=== PATIENT | female | born 1955 | race Caucasian/White ===

== ENCOUNTER 2017-09-02 11:12 | Outpatient (CLI) | payer MEDICARE | END 2017-09-02 11:13 | disposition home or self-care (01) | LOC: BICMAMMO 11:12 | PROVIDERS: ATTEND Family Medicine | DX: Z12.31 Encounter for screening mammogram for malignant neoplasm of breast (principal) | CPT/HCPCS: 77063; 77067 ==

== ENCOUNTER 2018-03-02 13:19 | Outpatient (CLI) | payer MEDICARE | END 2018-03-02 13:20 | disposition home or self-care (01) | LOC: BICULT 13:19 | PROVIDERS: ATTEND Family Medicine | DX: R10.2 Pelvic and perineal pain (principal) | CPT/HCPCS: 76856 ==

== ENCOUNTER 2019-12-13 14:19 | Outpatient (CLI) | payer MEDICARE ==
--- NOTE | 2019-12-13 14:52 | ULT ---
ULTRASOUND RETROPERITONEUM COMPLETE: (RENAL) DATE: 12/13/2019 HISTORY: 64-year-old female with chronic kidney disease stage III , N18.3 FINDINGS: The right kidney measures 10 x 4.5 x 4.5 cm. The left kidney measures 10 x 1.5 x 4.5 cm. Both kidneys have normal parenchymal echogenicity. There is no hydronephrosis. No moderate sized or large renal cystic or solid renal lesion is identified. Cursory images of the urinary bladder demonstrate no gross abnormality. IMPRESSION: Normal
== END 2019-12-13 14:20 | disposition home or self-care (01) ==
LOC: SCSULT 14:19
PROVIDERS: ATTEND Internal Medicine Nephrology
DX: N18.3 Chronic kidney disease, stage 3 (moderate) (principal)
CPT/HCPCS: 76770

== ENCOUNTER 2020-11-06 10:06 | Outpatient (CLI) | payer MEDICARE | END 2020-11-06 10:07 | disposition home or self-care (01) | LOC: BICMAMMO 10:06 | PROVIDERS: ATTEND Internal Medicine Rheumatology | DX: M81.0 Age-related osteoporosis without current pathological fracture (principal); M46.1 Sacroiliitis, not elsewhere classified | CPT/HCPCS: 72202; 77080 ==

== ENCOUNTER 2021-07-05 14:13 | Outpatient (CLI) | payer MEDICARE | END 2021-07-05 14:14 | disposition home or self-care (01) | LOC: BICRAD 14:13 | PROVIDERS: ATTEND Family Medicine | DX: R05.9 Cough, unspecified (principal) | CPT/HCPCS: 71046 ==

== ENCOUNTER 2021-11-08 09:46 | Outpatient (CLI) | payer MEDICARE | END 2021-11-08 09:47 | disposition home or self-care (01) | LOC: BICMAMMO 09:46 | PROVIDERS: ATTEND Family Medicine | DX: Z12.31 Encounter for screening mammogram for malignant neoplasm of breast (principal); Z13.820 Encounter for screening for osteoporosis; Z78.0 Asymptomatic menopausal state; Z91.89 Other specified personal risk factors, not elsewhere classified | CPT/HCPCS: 77063; 77067; 77080 ==

== ENCOUNTER → 2022-09-27 | Outpatient (CLI) | payer MEDICARE | LOC: EDSTATUS 10:50 → SLEEPLAB 17:00 | PROVIDERS: ATTEND Family Medicine | DX: G47.33 Obstructive sleep apnea (adult) (pediatric) (principal); R53.83 Other fatigue; E11.9 Type 2 diabetes mellitus without complications; I10 Essential (primary) hypertension; F32.A Depression, unspecified; R06.83 Snoring | CPT/HCPCS: 95810 ==

== ENCOUNTER 2022-10-30 19:00 | Outpatient (CLI) | payer MEDICARE | END 2022-10-30 19:01 | disposition home or self-care (01) | LOC: SLEEPLAB 19:00 | PROVIDERS: ATTEND Family Medicine | DX: G47.33 Obstructive sleep apnea (adult) (pediatric) (principal); R53.83 Other fatigue; E11.9 Type 2 diabetes mellitus without complications; R06.83 Snoring; F32.A Depression, unspecified; I10 Essential (primary) hypertension; G47.10 Hypersomnia, unspecified; E66.9 Obesity, unspecified; Z68.26 Body mass index [BMI] 26.0-26.9, adult | CPT/HCPCS: 95811 ==

== ENCOUNTER 2023-01-01 09:31 | Outpatient (CLI) | payer OTHER ==
[2023-01-01] MEDS ORDERED: Iopamidol-370 76% 500 ML MDV (1 ML CHARGE) ONE (11:14)
== END 2023-01-01 09:32 | disposition home or self-care (01) ==
LOC: BICCT 09:31
PROVIDERS: ATTEND Family Medicine
DX: R10.10 Upper abdominal pain, unspecified (principal); R16.1 Splenomegaly, not elsewhere classified
CPT/HCPCS: 74177; 82565; Q9967

== ENCOUNTER 2023-06-03 13:32 | Outpatient (CLI) | payer OTHER | END 2023-06-03 13:33 | disposition home or self-care (01) | LOC: BICRAD 13:32 | PROVIDERS: ATTEND Physician Assistant Medical | DX: R10.9 Unspecified abdominal pain (principal); D64.9 Anemia, unspecified | CPT/HCPCS: 74018 ==

== ENCOUNTER 2023-08-29 09:37 | Day surgery (SDC) | payer OTHER ==
[2023-08-28 09:58] VITALS: BMI 23.6
[2023-08-29] MEDS ORDERED: PROPOFOL 20 ML ONE ×2 (10:57→13:20)
[2023-08-29] MEDS ORDERED: Lidocaine 1% PF 5 ML VIAL ONE (13:19)
== END 2023-08-29 14:48 | disposition home or self-care (01) ==
LOC: SDC 09:37
PROVIDERS: ATTEND Internal Medicine
PROC: XW0H7X8 Introduction of Broad Consortium Microbiota-based Live Biotherapeutic Suspension into Lower GI, Via Natural or Artificial Opening, New Technology Group 8 (ICD-10-PCS; principal; 2023-08-29)
DX: A04.71 Enterocolitis due to Clostridium difficile, recurrent (principal); K64.8 Other hemorrhoids; K64.4 Residual hemorrhoidal skin tags; E11.9 Type 2 diabetes mellitus without complications; I10 Essential (primary) hypertension; G47.33 Obstructive sleep apnea (adult) (pediatric); E78.00 Pure hypercholesterolemia, unspecified; Z90.49 Acquired absence of other specified parts of digestive tract; Z90.710 Acquired absence of both cervix and uterus; Z79.899 Other long term (current) drug therapy; Z88.1 Allergy status to other antibiotic agents; Z88.6 Allergy status to analgesic agent; Z88.5 Allergy status to narcotic agent; Z88.8 Allergy status to other drugs, medicaments and biological substances; Z79.84 Long term (current) use of oral hypoglycemic drugs
CPT/HCPCS: J2704

== ENCOUNTER 2024-01-02 08:25 | Outpatient (CLI) | payer OTHER ==
[2024-01-02] MEDS ORDERED: Iopamidol 370 76% 100 ML VIAL ONE (11:37)
== END 2024-01-02 08:26 | disposition home or self-care (01) ==
LOC: BICCT 08:25
PROVIDERS: ATTEND Physician Assistant Medical
DX: R74.8 Abnormal levels of other serum enzymes (principal); R19.7 Diarrhea, unspecified; R16.2 Hepatomegaly with splenomegaly, not elsewhere classified
CPT/HCPCS: 74160; 82565; Q9967

== ENCOUNTER 2024-05-27 12:37 | Outpatient (CLI) | payer OTHER | END 2024-05-27 12:38 | disposition home or self-care (01) | LOC: BICMAMMO 12:37 | PROVIDERS: ATTEND Family Medicine | DX: Z12.31 Encounter for screening mammogram for malignant neoplasm of breast (principal); Z91.89 Other specified personal risk factors, not elsewhere classified | CPT/HCPCS: 77063; 77067 ==